=== PATIENT | female | born 2005 | race Caucasian/White ===

== ENCOUNTER 2023-07-18 23:18 | Day surgery (SDC) | payer BC, OTHER ==
[2023-07-18 23:53] VITALS: BMI 32.9
[2023-07-19] MEDS ORDERED: hydrALAZINE 20 MG/ML VIAL SLOW IVP PRN (00:14)
[2023-07-19 00:34] LABS: Fetal Membranes Rupture No Membranes Rupture (No Rupture)
== END 2023-07-19 01:29 | disposition home or self-care (01) ==
LOC: CSHLD/OP 23:18
PROVIDERS: ATTEND Obstetrics & Gynecology
DX: Z03.71 Encounter for suspected problem with amniotic cavity and membrane ruled out (principal); O99.283 Endocrine, nutritional and metabolic diseases complicating pregnancy, third trimester; E03.9 Hypothyroidism, unspecified; Z3A.38 38 weeks gestation of pregnancy; Z79.890 Hormone replacement therapy
CPT/HCPCS: 84112; 99283

== ENCOUNTER 2023-12-14 18:22 | Emergency (ER) | payer BC, OTHER ==
[~2023-12-14 18:22] MED LIST: Iopamidol 300 61% 100 ML VIAL FS ONE
[2023-12-14 18:55] LABS: Bilirubin Neg (Negative); Blood, Urine Negative (Negative); Clarity Clear (Clear); Glucose, Urine (Dipstick) Normal (Negative); Ketone, Urine Negative (Negative); Leukocyte Negative (Negative); Nitrite Negative (Negative); Protein, Urine (Dipstick) Negative (Neg-Trace); Urobilinogen Normal mg/dL (Less than 2)
[2023-12-14 18:58] LABS: Pregnancy Test - Urine (BHCG) Negative (Negative); Pregu Control Background? CLEAR/WHITE (CLR/WHITE); Pregu Control Bar Appear? YES (CONTROL BAR)
[2023-12-14 19:16] LABS: Bacteria/HPF Rare-Few HPF (None Seen); CAUTI Indications for Culture Pelvic or flank pain; RBC/HPF 0-3 HPF (0-3); Squamous Epithelial 0-3 HPF (0-3); WBC/HPF 0-3 HPF (0-3)
[2023-12-14 19:18] LABS: Urine Culture Reflex No No
[2023-12-14] MEDS ORDERED: Ondansetron PF 4 MG/2 ML Vial ONE (19:29)
[2023-12-14 19:37] LABS: #Eosinophils 0.34 10x3/uL (0.0-0.5); #Monocytes 0.44 10x3/uL (0.0-1.1); #Neutrophils 3.92 10x3/uL (1.5-8.4); %Eosinophils 4.9 % (0.0-6.0); %Lymphocytes 32.6 % (18.0-47.0); %Monocytes 6.3 % (0.0-10.0); %Neutrophils 56.1 % (40.0-75.0); ALT (SGPT) 24 U/L (8-55); AST (SGOT) 23 U/L (5-34); Albumin 4.3 g/dL (3.5-5.0); Alkaline Phosphatase 96 U/L (40-100); Anion Gap 13 mmol/L (10-20); BUN (Urea Nitrogen) 15 mg/dL (7.0-18.7); Bilirubin, Total 0.3 mg/dL (0.2-1.2); Calc. Creatinine Clearance 0 mL/min (70-130); Calcium 9.6 mg/dL (7.8-10.44); Carbon Dioxide 23 mmol/L (22-29); Chloride 106 mmol/L (98-107); Estimated GFR 107; Globulin 3.1 g/dL (2.4-3.5); Glucose 89 mg/dL (70-105); Hematocrit 41.3 % (34.9-44.5); Hemoglobin 13.9 g/dL (12.0-15.5); Mean Corpuscular HGB CONC 33.7 g/dL (32.0-36.0); Mean Corpuscular Hemoglobin 29.3 pg (27.0-33.0); Mean Corpuscular Volume 86.9 fL (81.6-98.3); Mean Platelet Volume 9.5 fL (7.4-10.4); Platelet Count 285 10x3/uL (150-450); Potassium 3.9 mmol/L (3.5-5.1); Protein, Total 7.4 g/dL (6.0-8.3); RBC Distribution Width 12.3 % (11.5-14.5); Red Blood Cell (RBC) Count 4.75 10x6/uL (3.90-5.03); Sodium 138 mmol/L (136-145)
== END 2023-12-14 21:00 | disposition home or self-care (01) ==
LOC: CSHERS 18:22
DX: N83.201 Unspecified ovarian cyst, right side (principal)
CPT/HCPCS: 74177; 80053; 81001; 81025; 85025; 96374; J2405; Q9967